=== PATIENT | male | born 1945 | race Caucasian/White ===

== ENCOUNTER 2019-07-15 11:32 | Inpatient (IN) ==
[2019-07-15 12:21] LABS: Basophils % 0.6 %; Eosinophils # 0.1 K/mcL (0.0-0.6); Eosinophils % 0.7 %; Hematocrit 43.4 % (37.5-50.1); Hemoglobin 15.9 g/dL (12.9-16.9); Immature Granulocytes % 0.3 % (0-4); Lymphocytes # 0.9 K/mcL (0.6-4.6); Lymphocytes % 13.6 %; Mean Corpuscular HGB Conc 36.6 g/dL (31.6-35.5); Mean Corpuscular Hemoglobin 31.4 pg (28.0-33.3); Mean Corpuscular Volume 85.8 fL (83.0-100.0); Mean Platelet Volume 10.7 fL (9.4-12.4); Monocytes # 0.5 K/mcL (0.0-1.3); Monocytes % 7.7 %; Neutrophils # 5.2 K/mcL (1.6-8.9); Platelet Count 196 K/mcL (140-400); Red Blood Count 5.06 M/mcL (4.19-5.50); Segmented Neutrophils % 77.1 %; White Blood Count 6.7 K/mcL (4.3-11.1)
[2019-07-15 12:25] LABS: INR 1.1; Prothrombin Time 12.1 Seconds (9.4-12.1)
[2019-07-15 12:28] LABS: Activated Partial Thrombo Time 29.2 Seconds (26.0-36.0)
[2019-07-15 12:53] LABS: Troponin I 0.07 ng/mL (< 0.04)
[2019-07-15] MEDS ORDERED: 0.9 % Sodium Chloride 1,000 ML IVC ONE (13:11)
[2019-07-15 13:18] LABS: BUN/Creatinine Ratio 27 (6-26); Blood Urea Nitrogen 21 mg/dL (8-23); Calcium 9.7 mg/dL (8.6-10.3); Carbon Dioxide 23 mEq/L (23-29); Chloride 105 mEq/L (98-107); Glucose 145 mg/dL (70-105); Osmolality,Calculated 294 (280-300); Potassium 4.3 mEq/L (3.5-5.1); Sodium 139 mEq/L (136-145); eGFR For African Americans > 60 (> 60); eGFR For Non-African Americans > 60 (> 60)
[2019-07-15] MEDS ORDERED: Isovue-370 500 ML BOTTLE IVP ONE (13:24)
[2019-07-15] MEDS ORDERED: *HR* Heparin 5,000 UNIT/ML VIAL IVP ONE (14:51)
[2019-07-15] MEDS ORDERED: *HR* Heparin 5,000 UNIT/ML VIAL IVP PRN ×2 (14:51)
[2019-07-15] MEDS ORDERED: *HR* Metoprolol 5 MG/5 ML VIAL IVP ONE (14:51)
[2019-07-15 15:48] LABS: Magnesium 1.8 mg/dL (1.6-2.6); Phosphorous 2.9 mg/dL (2.7-4.5); Thyroid Stimulating Hormone 2.215 mcIU/mL (0.340-5.600)
[2019-07-15] MEDS: Heparin 25,000 UNIT/250 ML D5W 25,000 UNIT/250 ML IV.SOLN IVC SCH (15:52)
[2019-07-15] MEDS ORDERED: Naloxone 0.4 MG/ML INJ IVP PRN (17:21)
[2019-07-15] MEDS ORDERED: Magnesium Oxide 400 MG TABLET PO SCH (17:30)
[2019-07-15] MEDS ORDERED: Dextrose Gel 15 GM/37.5 ML TUBE PO PRN ×2 (17:39)
[2019-07-15] MEDS ORDERED: *HR* Dextrose 50 % in Water (Syg) 50 ML SYRINGE IVP PRN (17:39)
[2019-07-15] MEDS ORDERED: D5% in Water 1,000 ML IVC PRN (17:39)
[2019-07-15] MEDS: Insulin LISPRO 300 UNITS/3 ML VIAL SQ SCH (19:59)
[2019-07-16 00:48] LABS: Basophils % 0.5 %; Eosinophils # 0.2 K/mcL (0.0-0.6); Eosinophils % 2.4 %; Hematocrit 38.7 % (37.5-50.1); Immature Granulocytes % 0.3 % (0-4); Lymphocytes # 1.9 K/mcL (0.6-4.6); Lymphocytes % 30.5 %; Mean Corpuscular HGB Conc 34.9 g/dL (31.6-35.5); Mean Corpuscular Hemoglobin 31.3 pg (28.0-33.3); Mean Corpuscular Volume 89.6 fL (83.0-100.0); Mean Platelet Volume 10.5 fL (9.4-12.4); Monocytes # 0.6 K/mcL (0.0-1.3); Monocytes % 9.6 %; Neutrophils # 3.5 K/mcL (1.6-8.9); Platelet Count 160 K/mcL (140-400); Red Blood Count 4.32 M/mcL (4.19-5.50); Red Cell Distribution Width 13.2 % (11.5-14.5); Segmented Neutrophils % 56.7 %; White Blood Count 6.1 K/mcL (4.3-11.1)
[2019-07-16 00:52] LABS: Hemoglobin 13.5 g/dL (12.9-16.9)
[2019-07-16 00:54] LABS: INR 1.2; Prothrombin Time 13.3 Seconds (9.4-12.1)
[2019-07-16 01:06] LABS: BUN/Creatinine Ratio 25 (6-26); Blood Urea Nitrogen 20 mg/dL (8-23); Calcium 8.8 mg/dL (8.6-10.3); Carbon Dioxide 27 mEq/L (23-29); Chloride 106 mEq/L (98-107); Glucose 135 mg/dL (70-105); Magnesium 1.9 mg/dL (1.6-2.6); Osmolality,Calculated 295 (280-300); Potassium 3.8 mEq/L (3.5-5.1); Sodium 140 mEq/L (136-145); eGFR For African Americans > 60 (> 60); eGFR For Non-African Americans > 60 (> 60)
[2019-07-16] MEDS: Insulin LISPRO 300 UNITS/3 ML VIAL SQ SCH ×4 (08:43→20:28)
[2019-07-16] MEDS: Losartan/HCTZ 50-12.5 TABLET PO SCH (08:46)
[2019-07-16] MEDS: Aspirin Enteric Coated 81 MG Tablet PO SCH (08:46)
[2019-07-16] MEDS: Heparin 25,000 UNIT/250 ML D5W 25,000 UNIT/250 ML IV.SOLN IVC SCH ×2 (08:46→10:54)
[2019-07-16] MEDS ORDERED: NON-FORMULARY MEDICATION 1 EACH EACH (Glucosamine/D3/Boswellia Serra [Osteo Bi-Flex Tablet PO SCH (09:00)
[2019-07-17 05:01] LABS: Basophils % 0.8 %; Eosinophils # 0.2 K/mcL (0.0-0.6); Eosinophils % 2.8 %; Hematocrit 42.6 % (37.5-50.1); Hemoglobin 15.1 g/dL (12.9-16.9); Immature Granulocytes % 0.2 % (0-4); Lymphocytes # 1.6 K/mcL (0.6-4.6); Lymphocytes % 30.4 %; Mean Corpuscular HGB Conc 35.4 g/dL (31.6-35.5); Mean Corpuscular Volume 87.5 fL (83.0-100.0); Mean Platelet Volume 10.6 fL (9.4-12.4); Monocytes # 0.5 K/mcL (0.0-1.3); Monocytes % 8.9 %; Platelet Count 172 K/mcL (140-400); Red Blood Count 4.87 M/mcL (4.19-5.50); Red Cell Distribution Width 13.2 % (11.5-14.5); Segmented Neutrophils % 56.9 %; White Blood Count 5.3 K/mcL (4.3-11.1)
[2019-07-17 05:14] LABS: BUN/Creatinine Ratio 21 (6-26); Blood Urea Nitrogen 18 mg/dL (8-23); Carbon Dioxide 26 mEq/L (23-29); Chloride 106 mEq/L (98-107); Glucose 139 mg/dL (70-105); Osmolality,Calculated 292 (280-300); Potassium 4.2 mEq/L (3.5-5.1); Sodium 139 mEq/L (136-145); eGFR For African Americans > 60 (> 60); eGFR For Non-African Americans > 60 (> 60)
[2019-07-17 06:58] VITALS: BP 124/80
[2019-07-17] MEDS: Heparin 25,000 UNIT/250 ML D5W 25,000 UNIT/250 ML IV.SOLN IVC SCH (07:42)
[2019-07-17] MEDS: Insulin LISPRO 300 UNITS/3 ML VIAL SQ SCH (07:49)
[2019-07-17] MEDS: Losartan/HCTZ 50-12.5 TABLET PO SCH (07:49)
[2019-07-17] MEDS: Aspirin Enteric Coated 81 MG Tablet PO SCH (07:49)
[2019-07-17 10:27] LABS: INR 1.1; Prothrombin Time 12.8 Seconds (9.4-12.1)
[2019-07-17] MEDS ORDERED: Warfarin perPT PO PRN (18:00)
[2019-07-17] MEDS ORDERED: *HR* Warfarin 5 MG TABLET PO SCH (18:00)
[2019-07-18] MEDS ORDERED: Metoprolol XL (24 HR) Succ 25 MG TAB.ER.24H PO SCH (09:00)
== END 2019-07-17 11:17 | disposition home or self-care (01) | DRG 309 ==
LOC: EMEROOARM 11:32 → 2ANU 11:32 → SUATTDRO 07-16 13:42
PROVIDERS: ADMIT Family Medicine; ATTEND Internal Medicine